=== PATIENT | female | born 1970 ===

== ENCOUNTER 2020-03-30 10:48 | Outpatient (REF) | payer SELFPAY | END 2020-03-30 10:49 | disposition home or self-care (01) | LOC: HO.SCI 10:48 | DX: R51.9 Headache, unspecified (principal) ==

== ENCOUNTER 2020-04-20 07:57 | Outpatient (REF) | payer OTHER, SELFPAY | END 2020-04-20 07:58 | disposition home or self-care (01) | LOC: HO.CT 07:57 | PROVIDERS: Visit Provider Psychiatry & Neurology Neurology | DX: Z13.89 Encounter for screening for other disorder (principal) ==

== ENCOUNTER 2020-05-18 08:08 | Outpatient (REF) | payer OTHER, SELFPAY ==
--- NOTE | 2020-05-18 08:11 | CT_ITS ---
EXAMINATION: CT ANGIOGRAM HEAD CLINICAL INFORMATION: Migraine headaches. COMPARISON: There are no prior studies available for comparison at time of dictation. TECHNIQUE: A noncontrast axial CT scan of the head was obtained. Test bolus sequences followed by intravenous administration 75 mL of Omnipaque 350 intravenous contrast. Helical imaging was performed in the axial plane from the skull base to the vertex. Delayed postcontrast imaging of the head was also performed. The data was processed at the registered vascular technologist (rvt) workstation for generation of MIP sequences. Three-dimensional volume rendered reformatted images were also generated at an offline 3-D workstation. This CT examination was performed using dose optimization techniques as appropriate, variously including the following: *Automated exposure control *Adjustment of mA and/or kV according to patient size (this includes techniques or standardized protocols for targeted exams where dose is matched to indication/reason for exam; i.e. extremities or head) *Use of iterative reconstruction technique DLP: 2175 mGy-cm FINDINGS: CT Head: There is no evidence of acute intracranial hemorrhage or territorial infarction. No abnormal mass-effect or midline shift is seen. Us to white matter differentiation is well preserved. No extra-axial fluid collections are identified. There is no abnormal enhancement. Slight asymmetry of the bodies of the lateral ventricles is within normal limits of variation. There is an incidental partially empty sella. There is no abnormal attenuation within the brain parenchyma. The osseous structures and soft tissues are normal. The mastoid air cells all well-aerated. There is mild mucoperiosteal thickening in the left maxillary sinus. CTA Head: In the anterior circulation, the distal internal carotid arteries within the neck appear normal. The intracranial internal carotid arteries and their bifurcations appear normal. The middle and anterior cerebral arteries bilaterally demonstrate normal caliber with no evidence of focal stenosis, aneurysm or vascular malformation. There is normal arborization of the middle cerebral artery branches. The anterior communicating artery is normal. In the posterior circulation, the left vertebral artery is dominant. The vertebral arteries intradurally have normal caliber. The basilar artery appears normal. The left posterior cerebral artery arises off the anterior circulation, which is a normal variant ( origin). The posterior cerebral arteries have normal caliber. The venous sinuses opacify normally. CT/CT angio head IMPRESSION: 1. There are no acute bleeds or territorial infarcts. There are no masses or areas of abnormal enhancement. 2. There are no focal stenoses, aneurysms or vascular malformations in the intracranial vasculature.
[2020-05-18] MEDS: iohexoL 350 MG/ML 100 ML INFUS..BTL 70 ML IV (09:42)
== END 2020-05-18 08:09 | disposition home or self-care (01) ==
LOC: HO.CT 08:08
PROVIDERS: Visit Provider Psychiatry & Neurology Neurology
DX: G43.009 Migraine without aura, not intractable, without status migrainosus (principal); R51.0 Headache with orthostatic component, not elsewhere classified
CPT/HCPCS: 70496; Q9967